=== PATIENT | female | born 1955 | race Caucasian/White ===

== ENCOUNTER 2022-05-16 12:54 | Emergency (ER) | payer MEDICARE, SELFPAY ==
[2022-05-16 13:01] VITALS: BP 108/72; PULSE 92; RESP 18; TEMP 37; O2SAT 96; BMI 22.1
--- NOTE | 2022-05-16 13:23 | ED.SKABFB ---
HPI - Skin/Abscess/Foreign Bdy General Date Seen: 05/16/22 Chief complaint: Skin/Abscess/Foreign Body Stated complaint: Likely spider bite, bleeding Time Seen by Provider: 05/16/22 12:58 Source: patient and family Mode of arrival: ambulatory Limitations: no limitations History of Present Illness HPI narrative: Patient is a very nice 67-year-old female presents here with an area of redness swelling and pain on her right buttock, she has noticed the last couple days, she has put some Benadryl cream on there, thinks it may be a spider bite but does not remember being bit by spider. He has had some overall general aches, and joint issues, but no fevers chills, associated with this. She has no immunosuppressive diseases, no allergies to antibiotics. No history of fevers, chills, nausea vomiting, neck pain or stiffness, other rashes, diarrhea, dysuria frequency Review of Systems Status of ROS: Reports: 6 or more systems reviewed and unremarkable except as noted in History and below PFSH PFS Social History Smoking Status: Current every day smoker What tobacco products do you use: cigarettes Smoking packs per day: 0.75 Smoking cigarettes per day: 15.0 Do you use any of these nicotine containing products: None Second hand tobacco smoke exposure: No How often do you have a drink containing alcohol: monthly or less How many standard drinks containing alcohol do you have on a typical day: 1 or 2 How often do you have six or more drinks on one occasion: Never AUDIT-C Alcohol total score: 1 Non-prescribed substance use: denies use service: No Exam Narrative: Exam Narrative: Patient is in no apparent distress company by her , and she is examined with nurse Luna in the room. Examination of the right buttock reveals some redness, excoriation on the superior part of the above are, there is a small area of redness, approximately 6-7 cm, with a central area of skin excoriation. No bull's-eye lesion is noted. No specific abscess is palpated, but there is some induration, within the area of redness. Const: Vital Signs, click to edit/add: Vital Signs - 24 hr 05/16/22 13:01 Temperature 98.6 F Pulse Rate [Femora l] 92 Respiratory Rate 18 Blood Pressure [Le ft Upper Arm] 108/72 Pulse Oximetry 96 Oxygen Delivery Me thod Room Air Documenting provider has reviewed patient's vital signs: yes Course Vital Signs Vital signs: Initial Vital Signs Temperature 98.6 F 05/16/22 13:01 Temperature Source Temporal Artery Scan 05/16/22 13:01 Pulse Rate 92 05/16/22 13:01 Pulse Rhythm 05/16/22 13:01 Respiratory Rate 18 05/16/22 13:01 Blood Pressure 108/72 05/16/22 13:01 Blood Pressure Mean 84 05/16/22 13:01 Blood Pressure Position Sitting 05/16/22 13:01 Pulse Oximetry 96 05/16/22 13:01 Oxygen Delivery Method 05/16/22 13:01 Vital Signs Temperature 98.6 F 05/16/22 13:01 Pulse Rate 92 05/16/22 13:01 Respiratory Rate 18 05/16/22 13:01 Blood Pressure 108/72 05/16/22 13:01 Pulse Oximetry 96 05/16/22 13:01 Oxygen Delivery Method 05/16/22 13:01 Temperature 98.6 F 05/16/22 13:01 Pulse Rate 92 05/16/22 13:01 Respiratory Rate 18 05/16/22 13:01 Blood Pressure 108/72 05/16/22 13:01 Pulse Oximetry 96 05/16/22 13:01 Oxygen Delivery Method 05/16/22 13:01 MDM - Skin/Abscess/Foreign Bdy MDM Narrative Medical decision making narrative: Differential diagnosis include but are not limited to contact dermatitis, allergic reaction, shingles, impetigo, seborrheic dermatitis, Issac Alfredito syndrome, ITP, meningococcus, HSP I suspect that this is an area of cellulitis from her bug bite/furuncle. Bacitracin twice daily on the area, with heat to dried out, and use of Keflex is suggested, worsening signs and symptoms are discussed in detail, Medical Records Attestation: I reviewed the patient's medical records. Discharge Plan Discharge Clinical Impression: Cellulitis, Insect bites Patient Disposition: Home w/ Parent or Adult Condition: Stable Instructions: Cellulitis (ED), Warm Compress or Soak (ED) Additional Instructions: Take your antibiotic as directed, bacitracin twice daily, change in the Band-Aid, showering daily, and use of a heating pad t.i.d.. This should slowly improve, ibuprofen for the discomfort or Tylenol, whenever you tolerate, probably not a good idea the ibuprofen and the Plavix. Stand Alone Forms: [employer] Info Instructions
== END 2022-05-16 13:41 | disposition home or self-care (01) ==
LOC: ED 13:32
PROVIDERS: Emergency Provider Family Medicine
DX: L03.317 Cellulitis of buttock (principal)
CPT/HCPCS: 99283

== ENCOUNTER 2022-07-17 07:22 | Outpatient (CLI) | payer MEDICARE, SELFPAY ==
[2022-07-17 08:02] LABS: Chloride* 104 mmol/L (96-114); Potassium* 4.1 mmol/L (3.6-5.1); Sodium* 138 mmol/L (135-149)
[2022-07-17 08:05] LABS: Blood Urea Nitrogen* 21 mg/dL (7-30); Carbon Dioxide* 28 mmol/L (20-32); Cholesterol* 155 mg/dL (90-199); Creatinine* 0.7 mg/dL (0.5-1.5); Estimated Glomerular Filt Rate 95 ml/min
[2022-07-17 08:06] LABS: Calcium* 9.5 mg/dL (8.4-10.6); Glucose* 88 mg/dL (60-115); HDL Cholesterol* 60 mg/dL (>=50); LDL Cholesterol Calculated 77 mg/dL (<100); Triglycerides* 88 mg/dL (40-149)
[2022-07-18 13:43] LABS: LDL Cholesterol, Direct 73 mg/dL (0-129)
== END 2022-07-17 07:23 | disposition home or self-care (01) ==
LOC: NPINS 07:27 → LAB 08:39
PROVIDERS: PCP Physician Assistant Medical; Visit Provider Internal Medicine
DX: I25.10 Atherosclerotic heart disease of native coronary artery without angina pectoris (principal)
CPT/HCPCS: 80048; 80061; 83721